=== PATIENT | female | born 1970 | race Caucasian/White ===

== ENCOUNTER → 2017-02-08 08:39 | Outpatient (CLI) | payer BC ==
--- NOTE | 2017-02-25 09:15 | EC ---
PATIENT:MICHELLE BAIRES DATE OF SERVICE: 02/08/17 SEX: F MEDICAL RECORD: [id number] DATE OF : 70 LOCATION:[facility] AGE OF PATIENT: 46 ADMISSION DATE: 02/08/17 REFERRING PHYSICIAN: INTERPRETING PHYSICIAN: MAIN ELI MD ECHOCARDIOGRAM REPORT ECHO CHARGES 4 ECHO COMPLETE CLINICAL DIAGNOSIS: CHEST PAIN/DYSPNEA WITH EXERTION ECHOCARDIOGRAPHIC MEASUREMENTS (adult normal given) AC root (d.<3.7cm) 2.6 cm LV Septum d (<1.2 cm> 1.2 cm Valve Excursion 1.4 cm LV Septum (systole) 1.3 cm Left Atria (s.<4.0cm> 3.1 cm LVPW d(<1.2cm) 1.1 cm RV (d.<2.3cm) 2.3 cm LVPW (sytole) 1.3 cm LV diastole(<5.6CM) 3.9 cm MV E-F(>70mm/sec) cm LV systole 2.9 cm LVOT Diameter 1.5 cm MV exc.(>10mm) cm Est.ejection fraction (50-75%) % Pericardial Effusion N DOPPLER: LVIT cm/sec A 59.0 cm/sec E 80.0 cm/sec LA cm/sec RVSP 24 mmHg LVOT 85 cm/sec AOP1/2T m/s Asc. Ao 134 cm/sec RVOT 86 cm/sec RA cm/sec PA 107 cm/sec AV Gradient Peak 7.14 mmHg AV Mean 3.85 mmHg AV Area 2.9 cm MV Gradient Peak 2.59 mmHg MV Mean 1.43 mmHg MV Area cm COMMENTS: Lab Pack Chemist: Terry BASSETT Pipeline Superintendent: 4 Dr. Eli TAPE# PACS DATE OF SERVICE: 02/08/2017 PROCEDURE: Transthoracic echocardiogram. FINDINGS: 1. Left ventricle has normal size, normal function, normal inflow characteristics, ejection fraction of 60%. 2. The left atrium is normal size, normal function. 3. The aortic valve is normal. 4. The mitral valve has trace to mild mitral regurgitation. ECHOCARDIOGRAM REPORT [id number] MICHELLE BAIRES 5. Tricuspid valve has trace tricuspid regurgitation with normal right ventricular systolic pressures. 6. The pericardium is normal. 7. There is no pericardial effusion. 8. The pulmonic valve is grossly normal. 9. The right atrium is normal size, normal function. CONCLUSIONS: Normal echocardiogram. TRANSINT:[id number] Voice Confirmation ID: [id number] DOCUMENT ID: [id number] MAIN ELI MD at 0915 CC: [id number] DICTATION DATE: 02/13/17 0803 INTERIOR SPECIALIST: 02/13/17 1031 DEP CLI 02/08/17 [id number] [place] [address]
== END | disposition home or self-care (01) ==
LOC: D.ECHO 08:39
DX: R07.9 Chest pain, unspecified (principal); R06.09 Other forms of dyspnea; R00.2 Palpitations

== ENCOUNTER → 2017-12-13 07:58 | Outpatient (CLI) | payer BC | END | disposition home or self-care (01) | LOC: D.RAD 07:58 | DX: M25.551 Pain in right hip (principal) ==

== ENCOUNTER → 2018-02-03 07:15 | Outpatient (CLI) | payer BC | END | disposition home or self-care (01) | LOC: D.MRI 01-31 07:00 | DX: M54.5 Low back pain (principal) ==

== ENCOUNTER → 2019-08-04 12:24 | Outpatient (CLI) | payer BC | END | disposition home or self-care (01) | LOC: D.MRI 12:24 | PROVIDERS: ATTEND Orthopaedic Surgery | DX: M25.552 Pain in left hip (principal) ==

== ENCOUNTER → 2019-08-10 21:40 | Outpatient (CLI) | payer BC ==
[2019-08-10 21:57] LABS: BASOPHILS 0.5 % (0-2); EOSINOPHILS 3.7 % (0-7); HEMATOCRIT 39.3 % (36.0-48.0); HEMOGLOBIN 12.8 g/dL (12-16); IMMATURE GRANULOCYTES 0.1 % (0-5); LYMPHOCYTES 39.1 % (15-50); MCH 31.8 pg (26.0-34.0); MCHC 32.6 g/dL (31.0-37.0); MCV 97.5 fL (80.0-100.0); MEAN PLATELET VOLUME 10.3 fL (7.4-10.4); MONOCYTES 8.4 % (2-11); NEUTROPHILS 48.2 % (40-80); PLATELET COUNT 315 10x3/uL (130-400); RBC 4.03 10x6/uL (4.00-5.40); RDW 14.5 % (11.5-14.5); WBC 7.5 10x3/uL (4.8-10.8)
[2019-08-10 22:35] LABS: ALBUMIN 3.9 g/dL (3.4-5.0); ALKALINE PHOSPHATASE 54 U/L (30-120); ALT (SGPT) 17 U/L (10-68); C-REACTIVE PROTEIN 0.4 mg/dL (0.0-0.9); CALC OSMOLALITY 277 mosm/kg (275-300); CALCIUM 8.8 mg/dL (8.5-10.1); CARBON DIOXIDE 22.2 mmol/L (21.0-32.0); CHLORIDE - SERUM 103 mmol/L (98-107); CREATININE - SERUM 0.8 mg/dL (0.6-1.3); POTASSIUM - SERUM 3.8 mmol/L (3.5-5.1); SODIUM 140 mmol/L (136-145); UREA NITROGEN 15 mg/dL (7-18); eGFR NON AFRICAN AMERICAN 81 mL/min (90-120)
[2019-08-10 22:37] LABS: GLUCOSE 70 mg/dL (74-106)
[2019-08-10 22:38] LABS: % SATURATION 14 % (15-55); IRON 59 ug/dl (35-150); TOTAL IRON BIND CAPACITY 406 ug/dl (260-445); UNSAT IRON BIND CAPACITY 347 ug/dl (150-375)
[2019-08-10 23:07] LABS: ERYTHROCYTE SEDIMENTATION RATE 5 mm/hr (0-20)
== END | disposition home or self-care (01) ==
LOC: D.LABREF 21:40
PROVIDERS: ATTEND Orthopaedic Surgery
DX: M25.552 Pain in left hip (principal)

== ENCOUNTER 2019-08-28 13:34 | Inpatient (IN) | payer BC ==
[~2019-08-28] VITALS: Ht 160 cm; Wt 67.7 kg
[2019-08-28] MEDS ORDERED: OMEPRAZOLE40 MG PO (13:44)
[2019-08-28] MEDS ORDERED: CALTRATE+D3 PL1 EACH PO (13:44)
[2019-08-28] MEDS ORDERED: ALENDRONATE SOD35 MG PO (13:45)
[2019-08-28] MEDS ORDERED: ENPRESSE PO (13:46)
[2019-08-28] MEDS ORDERED: TOPAMAX50 MG PO (13:46)
[2019-08-28] MEDS ORDERED: IMITREX100 MG PO (13:47)
[2019-08-28] MEDS ORDERED: BUPROPION HCL75 MG PO (13:47)
[2019-08-28] MEDS ORDERED: ZYRTEC10 MG PO (13:48)
[2019-08-28] MEDS ORDERED: VITAMIN B-12500 MCG PO (13:48)
[2019-08-28] MEDS ORDERED: LEXAPRO5 MG PO (13:48)
[2019-08-28] MEDS ORDERED: ACETAMINOPHEN325 MG PO (13:49)
[2019-08-28 14:07] LABS: HEMOGLOBIN 13.6 g/dL (12-16); MCH 31.9 pg (26.0-34.0); MCHC 33.2 g/dL (31.0-37.0); MCV 96.2 fL (80.0-100.0); MEAN PLATELET VOLUME 8.9 fL (7.4-10.4); RBC 4.26 10x6/uL (4.00-5.40); RDW 13.5 % (11.5-14.5); WBC 6.2 10x3/uL (4.8-10.8)
[2019-09-01] VITALS (10 sets, daily range): BP systolic 126–151; BP diastolic 65–87; Ht 160 cm; Wt 67.7 kg
[2019-09-01 09:03] LABS: HCG URINE NEGATIVE (NEGATIVE)
--- NOTE | 2019-09-01 12:51 | NUR ---
ICE APPLIED ORDERED. CALLED FOR SCD MACHINE.
--- NOTE | 2019-09-01 15:30 | NUR ---
P.Ember. SIGNED OFF FOR NURSING TO GET PT UP WITH WALKER.
[2019-09-01] MEDS ORDERED: BACLOFEN20 M1 PO (16:56)
[2019-09-01] MEDS ORDERED: BACLOFEN10 MG PO ×2 (16:56→16:57)
--- NOTE | 2019-09-01 17:28 | NUR ---
LOWER INCISION ON LEFT HIP SWOLLEN WITH TENDERNESS NO REDNESS NOTED. NOTIFIED DR. BAILEY PLACED CARTER BANDAGE AND ICE PER ORDERS. WILL CONTINUE TO MONITOR.
--- NOTE | 2019-09-01 17:36 | MORECARE ---
CASE MANAGEMENT DISCHARGE SUMMARY PATIENT: MICHELLE BAIRES LENIN UNIT: [id number] ADM DATE: 09/01/19 AGE: 49 : 70 SEX: F ROOM/BED: D.1211 AUTHOR: DEVON NATH PHYSICIAN: REFERRING PHYSICIAN: ROGER BAILEY DO DATE OF SERVICE: 09/01/19 Discharge Plan Patient Name: MICHELLE BAIRES Facility: [facility]:[place] : 1970 Planned Disposition: Anticipated Discharge Date: Discharge Date: Expected LOS: Initial Reviewer: [email or web address] Initial Review Date: 09/01/2019 Generated: 09/01/19 6:35 pm Patient Name: MICHELLE BAIRES Page 39595 at 1730 All edits/amendments must be made on the electronic document DICTATION DATE: 09/01/191735 UTILITY SPRAY OPERATOR: CEDRICK 09/01/191735 RPT#: [id number] DC DATE: STATUS: ADM IN [facility] [address] [place] [address] END OF REPORT
--- NOTE | 2019-09-01 20:00 | NUR ---
ALERT RESTING IN BED, ASSISTED UP TO BATHROOM WITH WALKER VOIDED WITHOUT DIFFICULTY BACK TO BED, CARTER WRAP DRESSING INTACT TO LEFT THIGH, STATES WAS SWELLING EARLIER, INSTRUCTED TO LET NURSE KNOW IF FEEING TOO TIGHT, GOOD PEDAL PULSES, SEE SHIFT ASSESSMENT, CALL LIGHT IN REACH
[2019-09-02] VITALS: BP 124/66
[2019-09-02 04:00] VITALS: BP 135/66
--- NOTE | 2019-09-02 07:30 | NUR ---
PATIENT AWAKE AND ALERT VISITING WITH , DENIES ANY NEEDS AT THIS TIME, C/L AND FLUIDS IN REACH.
[2019-09-02 07:40] LABS: HEMATOCRIT 35.4 % (36.0-48.0); HEMOGLOBIN 11.4 g/dL (12-16); MCH 31.1 pg (26.0-34.0); MCHC 32.2 g/dL (31.0-37.0); MCV 96.5 fL (80.0-100.0); MEAN PLATELET VOLUME 9.6 fL (7.4-10.4); RBC 3.67 10x6/uL (4.00-5.40); RDW 13.7 % (11.5-14.5); WBC 8.7 10x3/uL (4.8-10.8)
[2019-09-02 07:57] VITALS: BP 128/61
--- NOTE | 2019-09-02 09:00 | NUR ---
PT RESTING QUIETLY IN BED WITH SO AT BEDSIDE. PT REPORTS PAIN 4/10 AT THIS TIME. IV TO RIGHT HAND WITH 1/2 NS @ 50ML/HR INFUSING VIA PUMP. SITE WITHOUT REDNESS OR EDEMA. DRESSING C/D/I TO LEFT HIP. DENIES FURTHER NEEDS AT THIS TIME. CL WITHIN REACH. ENCOURAGED TO CALL WITH NEEDS. CONTINUE POC
--- NOTE | 2019-09-02 09:32 | OP ---
PATIENT NAME: MICHELLE BAIRES MEDICAL RECORD: [id number] :70 LOCATION:D.M3 D.1211 ADMISSION DATE:09/01/19 SURGEON: ROGER BAILEY DO DATE OF OPERATION: 09/01/2019 PROCEDURE PERFORMED: Left hip intramedullary nailing. PREOPERATIVE DIAGNOSIS: Left femur stress fracture in the intertrochanteric and subtrochanteric regions. POSTOPERATIVE DIAGNOSIS: Left femur stress fracture in the intertrochanteric and subtrochanteric regions. INDICATIONS: Ms. Baires is a 49-year-old female who in May started having left hip and groin pain. She had x-rays and then MRI. MRI showed a stress fracture in the area of the basicervical area of the femoral neck intertrochanteric area and then she went nonweightbearing and was very compliant to that and continued to have pain, got another MRI two months later and it showed increasing stress fracture down into the subtrochanteric region of the femur as well, which was appearing to be worse. She was tired of dealing with that and I informed with it, we could send the reamings off to verify there was not anything malignant, although it did not appear so on the MRI or we could just to be safe. I checked a vitamin D levels, they were normal. She was aware of the other risks including fracture, malunion, nonunion, continued pain, failure of implants, collapse of the femoral head, blood clots, and even and she signed the consent. SURGEON: Roger Bailey DO DESCRIPTION OF PROCEDURE: The patient was taken to the operative suite, laid in supine position, given general anesthetic and LMA was placed. She was then placed over on the [place] table and positioned. The left hip was then prepped and draped in sterile fashion. She was given 2 grams of Ancef preoperatively, and once the left hip prepped and draped timeout was performed. Everyone was in agreeance with the correct side, site, patient and procedure. I then began by making an incision over the left hip and made dissection down to the greater trochanter, got a good starting point on AP and lateral with the pin and then used a reamer to open up the canal. Once the canal was opened, the ball tip guidepin was put down the femur and we measured to be 320 length nail and started reaming first with an 8 up to 12 x 1, then 12.5 and 13 and ended up putting a 11 nail down. A 11 nail went in nicely and was in good position. We got the lag screw put in from the more distal portion through the jig and it was on lateral and in good adequate position of the femoral head. Once I was done, it was measured to be 95. We then reamed and put a 95 lag screw and then put an anti-rotational screw as well, 80 in length. The x-rays were done in AP and lateral and we locked the proximal portion of the nail and then went distal and got perfect circles and put a distal screw in the dynamic hole measuring 38 in length, 5 mm distal screw. We then took an oblique x-ray to look at the shaft and no fracture seen and the nail was in good position. I then irrigated these sites, the 3 incisions and they were closed by Severo Sanchez, certified surgical botany laboratory assistant, first with 2-0 Vicryl in an inverted interrupted fashion and then Prineo glue placed on them. She was then awakened and taken to recovery in stable condition. Telfa and Tegaderm were placed on the incision sites, taken to recovery in stable condition. Blood loss was approximately 200 mL. OPERATIVE REPORT [id number] MICHELLE BAIRES COMPLICATIONS: None. Of note, the reamings were caught both of the trochanter region and the femoral neck and down the shaft and sent to the lab. TRANSINT:[id number] Voice Confirmation ID: [id number] DOCUMENT ID: [id number] ROGER BAILEY DO at 0932 CC: [id number] DICTATION DATE: 09/01/19 1228 EXPANSION JOINT BUILDER: 09/01/19 1547 ADM IN [facility] [address] [place] [address]
--- NOTE | 2019-09-02 10:15 | NUR ---
PT UP IN CHAIR AT BEDSIDE. NO ACUTE DISTRESS NOTED. DENIES FURTHER NEEDS AT THSI TIME. CL WITHIN REACH. ENCOURAGED TO CALL WITH NEEDS.
--- NOTE | 2019-09-02 11:55 | NUR ---
UP IN CHAIR VISITING WITH , DENIES ANY NEEDS AT THIS TIME, C/L AND FLUIDS IN REACH.
[2019-09-02 13:09] VITALS: BP 103/52
[2019-09-02] MEDS ORDERED: VISTARIL50 MG PO (15:44)
[2019-09-02] MEDS ORDERED: BAYER CHEWABLE81 MG PO (15:44)
[2019-09-02] MEDS ORDERED: ULTRAM50 MG PO (15:45)
[2019-09-02] MEDS ORDERED: TORADOL10 MG PO (15:45)
--- NOTE | 2019-09-02 15:57 | MORECARE ---
CASE MANAGEMENT DISCHARGE SUMMARY PATIENT: MICHELLE BAIRES LENIN UNIT: [id number] ADM DATE: 09/01/19 AGE: 49 : 70 SEX: F ROOM/BED: D.1211 AUTHOR: DEVON NATH PHYSICIAN: REFERRING PHYSICIAN: ROGER BAILEY DO DATE OF SERVICE: 09/02/19 Discharge Plan Patient Name: MICHELLE BAIRES Facility: [facility]:[place] : 1970 Planned Disposition: Outpatient PT\OT Anticipated Discharge Date: 09/02/19 Discharge Date: Expected LOS: 1 Initial Reviewer: [email or web address] Initial Review Date: 09/01/2019 Generated: 09/02/19 4:57 pm Last DP export: 09/01/19 4:36 p Patient Name: MICHELLE BAIRES Page [id number] at 1557 All edits/amendments must be made on the electronic document DICTATION DATE: 09/02/191556 INFECTION CONTROL PREVENTIONIST: CEDRICK 09/02/19 1557 RPT#: [id number] DC DATE: STATUS: ADM IN [facility] [address] [place] [address] END OF REPORT
--- NOTE | 2019-09-02 16:00 | NUR ---
PT. AWAKE AND ALERT IN ROOM VISITING WITH , DENIES ANY NEEDS AT THIS TIME, D/C TODAY, C/L AND FLUIDS IN REACH.
--- NOTE | 2019-09-02 16:09 | MORECARE ---
CASE MANAGEMENT DISCHARGE SUMMARY PATIENT: MICHELLE BAIRES LENIN UNIT: [id number] ADM DATE: 09/01/19 AGE: 49 : 70 SEX: F ROOM/BED: D.1211 AUTHOR: DEVON NATH PHYSICIAN: REFERRING PHYSICIAN: ROGER BAILEY DO DATE OF SERVICE: 09/02/19 Discharge Plan Patient Name: MICHELLE BAIRES Facility: [facility]:[place] : 1970 Planned Disposition: Outpatient PT\OT Anticipated Discharge Date: 09/02/19 Discharge Date: Expected LOS: 1 Initial Reviewer: [email or web address] Initial Review Date: 09/01/2019 Generated: 09/02/19 5:09 pm DCPIA - Discharge Planning Initial Assessment Updated by [email or web address]: Stephanie Booker on 09/02/19 3:58 pm * Is the patient Alert and Oriented? Yes * How many steps to enter\exit or inside your home? * PCP Dr. Marcos Sanchez * Pharmacy [facility] [place] * Preadmission Environment Home with Family * ADLs Independent * Equipment Cane Crutch Rolling Walker Shower Chair * Other Equipment CPM * List name and contact numbers for known caregivers / representatives who currently or will assist patient after discharge: Juan Pablo Baires (spouse) [phone] * Verbal permission to speak to the caregivers and representatives has been obtained from the patient. Yes * Community resources currently utilized None * Please name any agencies selected above. PROJECT COORDINATOR RN Outpatient Therapy * Additional services required to return to the preadmission environment? Yes * Can the patient safely return to the preadmission environment? Yes * Has this patient been hospitalized within the prior 30 days at any hospital? No External Providers External Provider: OUTPTNP-NP Outpt PT Next Contact Date: Service Request Date: Service Type: Resolution: Reviewer: Comments: Last DP export: 09/02/19 2:57 p Patient Name: MICHELLE BAIRES Page [phone] at 1609 All edits/amendments must be made on the electronic document DICTATION DATE: 09/02/19 1609 RECYCLING SORTER: CEDRICK 09/02/19 1609 RPT#: [id number] DC DATE: STATUS: ADM IN [facility] [address] [facility] [place] [address] END OF REPORT
--- NOTE | 2019-09-02 16:28 | MORECARE ---
CASE MANAGEMENT DISCHARGE SUMMARY PATIENT: MICHELLE BAIRES UNIT: [id number] ADM DATE: 09/01/19 AGE: 49 : 70 SEX: F ROOM/BED: D.1211 AUTHOR: PHAM,DOC PHYSICIAN: REFERRING PHYSICIAN: ROGER BAILEY DO DATE OF SERVICE: 09/02/19 Discharge Plan Patient Name: MICHELLE BAIRES Facility: [facility]:[place] : 1970 Planned Disposition: Outpatient PT\OT Anticipated Discharge Date: 09/02/19 Discharge Date: Expected LOS: 1 Initial Reviewer: [email or web address] Initial Review Date: 09/01/2019 Generated: 09/02/19 5:27 pm Comments DCP- Discharge Planning Updated by [email or web address]: Stephanie Booker on 09/02/19 3:[address] DC Plan: CM attempted to reach PARLIAMENTARY ARCHIVIST OP Therapy X2 without success. CM will provide the phone number for patient to contact, for appointment. Faxed required information to PARLIAMENTARY ARCHIVIST OP Therapy @[phone], requested a call to the patient for appointment time/date. CM met with patient to discuss initial discharge planning. Patient is in agreement to proceed with the assessment with her present. Patient reports that she lives at home independently with her . Patient is alert/oriented. Stairs/steps: 0. PCP: Dr. Marcos Sanchez. Pharmacy: [facility]. Patient states she has been able to obtain all of her prescribed medications. HHS: No. DME: Walker, CPM, Cane, Crutches, Rolllator w/seat. Emergency contact: Juan Pablo Baires (spouse) [phone]. Patient is Independent with all ADL's, medication management SENIOR PAYROLL SPECIALIST. CM discussed the availability of HH, Rehab, SNF, OP Therapy, DME services. Patient request to use PARLIAMENTARY ARCHIVIST OP Therapy [phone]. Patient denies hospitalization within the past 30 days. Patient denies the use of community resources SENIOR PAYROLL SPECIALIST. Transportation at time of discharge: Juan Pablo. CM attempted to reach PARLIAMENTARY ARCHIVIST OP Therapy X2 without success. CM will provide the phone number for patient to contact, for appointment. Faxed required information to PARLIAMENTARY ARCHIVIST OP Therapy @[phone], requested a call to the patient for appointment time/date. DCPIA - Discharge Planning Initial Assessment Updated by [email or web address]: Stephanie Booker on 09/02/19 3:58 pm * Is the patient Alert and Oriented? Yes * How many steps to enter\exit or inside your home? * PCP Dr. Marcos Sanchez * Pharmacy [facility] * Preadmission Environment Home with Family * ADLs Independent * Equipment Cane Crutch Rolling Walker Shower Chair * Other Equipment CPM * List name and contact numbers for known caregivers / representatives who currently or will assist patient after discharge: Juan Pablo Baires (spouse) [phone] * Verbal permission to speak to the caregivers and representatives has been obtained from the patient. Yes * Community resources currently utilized None * Please name any agencies selected above. PARLIAMENTARY ARCHIVIST Outpatient Therapy * Additional services required to return to the preadmission environment? Yes * Can the patient safely return to the preadmission environment? Yes * Has this patient been hospitalized within the prior 30 days at any hospital? No Last DP export: 09/02/19 3:09 p Patient Name: MICHELLE BAIRES Page 60849 at 1628 All edits/amendments must be made on the electronic document DICTATION DATE: 09/02/191626 ARCH CUSHION PRESS OPERATOR: CEDRICK 09/02/191626 RPT#: [id number] DC DATE: STATUS: ADM IN [facility] [address] [place] [address] END OF REPORT
--- NOTE | 2019-09-02 18:57 | MORECARE ---
CASE MANAGEMENT DISCHARGE SUMMARY PATIENT: MICHELLE BAIRES UNIT: [id number] ADM DATE: 09/01/19 AGE: 49 : 70 SEX: F ROOM/BED: D.1211 AUTHOR: DEVON NATH PHYSICIAN: REFERRING PHYSICIAN: ROGER BAILEY DO DATE OF SERVICE: 09/02/19 Discharge Plan Patient Name: MICHELLE BAIRES Facility: [facility]:[place] : 1970 Planned Disposition: Outpatient PT\OT Anticipated Discharge Date: 09/02/19 Discharge Date: 09/02/2019 Expected LOS: 1 Initial Reviewer: [email or web address] Initial Review Date: 09/01/2019 Generated: 09/02/19 7:57 pm Comments DCP- Discharge Planning Updated by [email or web address]: Stephanie Booker on 09/02/19 3:[address] DC Plan: CM attempted to reach PIN CHASER OP Therapy X2 without success. CM will provide the phone number for patient to contact, for appointment. Faxed required information to PIN CHASER OP Therapy @[phone], requested a call to the patient for appointment time/date. CM met with patient to discuss initial discharge planning. Patient is in agreement to proceed with the assessment with her present. Patient reports that she lives at home independently with her . Patient is alert/oriented. Stairs/steps: 0. PCP: Dr. Marcos Sanchez. Pharmacy: [facility]. Patient states she has been able to obtain all of her prescribed medications. HHS: No. DME: Walker, CPM, Cane, Crutches, Rolllator w/seat. Emergency contact: Juan Pablo Baires (spouse) [phone]. Patient is Independent with all ADL's, medication management EVENT DECORATOR AND DESIGNER. CM discussed the availability of HH, Rehab, SNF, OP Therapy, DME services. Patient request to use PIN CHASER OP Therapy [phone]. Patient denies hospitalization within the past 30 days. Patient denies the use of community resources EVENT DECORATOR AND DESIGNER. Transportation at time of discharge: Juan Pablo. CM attempted to reach PIN CHASER OP Therapy X2 without success. CM will provide the phone number for patient to contact, for appointment. Faxed required information to PIN CHASER OP Therapy @[phone], requested a call to the patient for appointment time/date. DCPIA - Discharge Planning Initial Assessment Updated by [email or web address]: Stephanie Booker on 09/02/19 3:58 pm * Is the patient Alert and Oriented? Yes * How many steps to enter\exit or inside your home? * PCP Dr. Marcos Sanchez * Pharmacy [facility] * Preadmission Environment Home with Family * ADLs Independent * Equipment Cane Crutch Rolling Walker Shower Chair * Other Equipment CPM * List name and contact numbers for known caregivers / representatives who currently or will assist patient after discharge: Juan Pablo Baires (spouse) [phone] * Verbal permission to speak to the caregivers and representatives has been obtained from the patient. Yes * Community resources currently utilized None * Please name any agencies selected above. PIN CHASER Outpatient Therapy * Additional services required to return to the preadmission environment? Yes * Can the patient safely return to the preadmission environment? Yes * Has this patient been hospitalized within the prior 30 days at any hospital? No Last DP export: 09/02/19 3:28 p Patient Name: MICHELLE BAIRES Page 84611 at 1857 All edits/amendments must be made on the electronic document DICTATION DATE: 09/02/191856 PSYCHIATRIC NURSE PRACTITIONER: CEDRICK 09/02/191856 RPT#: [id number] DC DATE:09/02/19 STATUS: DIS IN [address] [place] [address] END OF REPORT
--- NOTE | 2019-09-03 15:12 | MORECARE ---
CASE MANAGEMENT DISCHARGE SUMMARY PATIENT: MICHELLE BAIRES UNIT: [id number] ADM DATE: 09/01/19 AGE: 49 : 70 SEX: F ROOM/BED: D.1211 AUTHOR: DEVON NATH PHYSICIAN: REFERRING PHYSICIAN: ROGER BAILEY DO DATE OF SERVICE: 09/03/19 Discharge Plan Patient Name: MICHELLE BAIRES Facility: [facility]:[place] : 1970 Planned Disposition: Outpatient PT\OT Anticipated Discharge Date: 09/02/19 Discharge Date: 09/02/2019 Expected LOS: 1 Initial Reviewer: [email or web address] Initial Review Date: 09/01/2019 Generated: 09/03/19 4:12 pm Comments DCP- Discharge Planning Updated by [email or web address]: Stephanie Booker on 09/02/19 3:[address] DC Plan: CM attempted to reach RESPIRATORY CARE PROGRAM DIRECTOR OP Therapy X2 without success. CM will provide the phone number for patient to contact, for appointment. Faxed required information to RESPIRATORY CARE PROGRAM DIRECTOR OP Therapy @[phone], requested a call to the patient for appointment time/date. CM met with patient to discuss initial discharge planning. Patient is in agreement to proceed with the assessment with her present. Patient reports that she lives at home independently with her . Patient is alert/oriented. Stairs/steps: 0. PCP: Dr. Marcos Sanchez. Pharmacy: [facility]. Patient states she has been able to obtain all of her prescribed medications. HHS: No. DME: Walker, CPM, Cane, Crutches, Rolllator w/seat. Emergency contact: Juan Pablo Baires (spouse) [phone]. Patient is Independent with all ADL's, medication management STRETCHER OPERATOR. CM discussed the availability of HH, Rehab, SNF, OP Therapy, DME services. Patient request to use RESPIRATORY CARE PROGRAM DIRECTOR OP Therapy [phone]. Patient denies hospitalization within the past 30 days. Patient denies the use of community resources STRETCHER OPERATOR. Transportation at time of discharge: Juan Pablo. CM attempted to reach RESPIRATORY CARE PROGRAM DIRECTOR OP Therapy X2 without success. CM will provide the phone number for patient to contact, for appointment. Faxed required information to RESPIRATORY CARE PROGRAM DIRECTOR OP Therapy @[phone], requested a call to the patient for appointment time/date. DCPIA - Discharge Planning Initial Assessment Updated by [email or web address]: Stephanie Booker on 09/02/19 3:58 pm * Is the patient Alert and Oriented? Yes * How many steps to enter\exit or inside your home? * PCP Dr. Marcos Sanchez * Pharmacy [facility] * Preadmission Environment Home with Family * ADLs Independent * Equipment Cane Crutch Rolling Walker Shower Chair * Other Equipment CPM * List name and contact numbers for known caregivers / representatives who currently or will assist patient after discharge: Juan Pablo Baires (spouse) [phone] * Verbal permission to speak to the caregivers and representatives has been obtained from the patient. Yes * Community resources currently utilized None * Please name any agencies selected above. RESPIRATORY CARE PROGRAM DIRECTOR Outpatient Therapy * Additional services required to return to the preadmission environment? Yes * Can the patient safely return to the preadmission environment? Yes * Has this patient been hospitalized within the prior 30 days at any hospital? No External Providers External Provider: OUTPTNP-NP Outpt PT Next Contact Date: Service Request Date: Service Type: Resolution: Reviewer: Comments: Last DP export: 09/02/19 5:57 p Patient Name: MICHELLE BAIRES Page 38667 at 1512 All edits/amendments must be made on the electronic document DICTATION DATE: 09/03/19 151 P[address] MILL SUPERVISOR: CEDRICK 09/03/19 1512 RPT#: [id number] DC DATE:09/02/19 STATUS: DIS IN [facility] [address] [place] [address] END OF REPORT
== END 2019-09-02 17:46 | disposition home or self-care (01) | DRG 482 ==
LOC: D.SDCHOLD 09-01 08:10 → D.M3 09-01 08:10 → D.M2 09-01 10:00 → D.M3 09-01 12:47
PROVIDERS: Anesthesiology; ADMIT Orthopaedic Surgery; ATTEND Orthopaedic Surgery
PROC: 0QS736Z Reposition Left Upper Femur with Intramedullary Internal Fixation Device, Percutaneous Approach (ICD-10-PCS; principal; 2019-09-01 10:00)
DX: M84.352A Stress fracture, left femur, initial encounter for fracture (principal); X58.XXXA Exposure to other specified factors, initial encounter

== ENCOUNTER → 2020-09-29 14:11 | Outpatient (CLI) | payer BC ==
[2019-09-01 17:20] VITALS: BMI 26.4
[~2020-09-29 14:11] MED LIST: ACETAMINOPHEN325 MG PO; ALENDRONATE SOD35 MG PO; BACLOFEN10 MG PO; BACLOFEN20 M1 PO; BAYER CHEWABLE81 MG PO; BUPROPION HCL75 MG PO; CALTRATE+D3 PL1 EACH PO; ENPRESSE PO; IMITREX100 MG PO; LEXAPRO5 MG PO; OMEPRAZOLE40 MG PO; TOPAMAX50 MG PO; TORADOL10 MG PO; ULTRAM50 MG PO; VISTARIL50 MG PO; VITAMIN B-12500 MCG PO; ZYRTEC10 MG PO
[2020-09-29 15:14] LABS: EOSINOPHILS 3.9 % (0-7); HEMATOCRIT 36.6 % (36.0-48.0); HEMOGLOBIN 11.6 g/dL (12-16); LYMPHOCYTES 41.5 % (15-50); MCH 26.5 pg (26.0-34.0); MCHC 31.8 g/dL (31.0-37.0); MCV 83.3 fL (80.0-100.0); MEAN PLATELET VOLUME 8.2 fL (7.4-10.4); MONOCYTES 12.7 % (2-11); NEUTROPHILS 40.9 % (40-80); PLATELET COUNT 345 10x3/uL (130-400); RBC 4.39 10x6/uL (4.00-5.40); RDW 16.9 % (11.5-14.5)
== END | disposition home or self-care (01) ==
LOC: D.LABREF 14:11
PROVIDERS: ATTEND Nurse Practitioner
DX: D64.9 Anemia, unspecified (principal)